=== PATIENT | male | born 1955 | race Caucasian/White ===

== ENCOUNTER 2022-12-30 11:25 | Emergency (ER) | payer MEDICARE ==
[~2022-12-30] VITALS: Ht 162.6 cm; Wt 61.2 kg
[2022-12-30] MEDS ORDERED: NEOMY/BACITRA/POLYMYXIN B OINT UD PACKET TP ONE ×2 (11:30→11:37)
[2022-12-30] MEDS ORDERED: TDAP DIPH,PERTUSS,TET VAC/PF 0.5 ML DISP.SYRIN IM ONE ×2 (11:30→11:38)
[2022-12-30 14:05] VITALS: BP 138/91; TEMP 98.3; O2SAT 98
== END 2022-12-30 14:47 | disposition home or self-care (01) ==
LOC: ER 11:25
DX: S20.211A Contusion of right front wall of thorax, initial encounter (principal); S80.212A Abrasion, left knee, initial encounter; S80.211A Abrasion, right knee, initial encounter; S00.81XA Abrasion of other part of head, initial encounter; W01.0XXA Fall on same level from slipping, tripping and stumbling without subsequent striking against object, initial encounter; Y93.89 Activity, other specified; Y92.89 Other specified places as the place of occurrence of the external cause; Y99.8 Other external cause status
CPT/HCPCS: 70450; 71045; 90715; A4663